=== PATIENT | male | born 1950 | race Caucasian/White ===

== ENCOUNTER 2021-03-22 16:35 | Emergency (ER) | payer OTHER ==
[~2021-03-22] VITALS: Ht 179.1 cm; Wt 89.8 kg
[2021-03-22 16:56] LABS: HEMOGLOBIN 13.3 gm/dl (14.0-17.5); RED BLOOD COUNT 4.9 M/UL (4.20-5.50); WHITE BLOOD COUNT 10.4 K/UL (4.5-11.0)
[2021-03-22 17:28] LABS: BUN/CREATININE RATIO 29 (0-10)
[2021-03-22] MEDS ORDERED: AMLODIPINE BESY10 MG PO (19:39)
[2021-03-22] MEDS ORDERED: FERROUS SULFAT325 MG PO (19:41)
[2021-03-22] MEDS ORDERED: ELIQUIS5 MG PO (19:41)
[2021-03-22] MEDS ORDERED: VITAMIN C500 M4 PO (19:42)
[2021-03-22] MEDS ORDERED: METHIMAZOLE5 MG PO (19:44)
[2021-03-22] MEDS ORDERED: NOVOLOG MI100 UNIT/1 INJ (19:44)
[2021-03-22] MEDS ORDERED: PROTONIX 40 MG40 M1 PO (19:45)
[2021-03-22] MEDS ORDERED: TRAZODONE HCL100 MG PO (19:46)
[2021-03-22] MEDS ORDERED: LYRICA50 MG PO (19:46)
[2021-03-22] MEDS ORDERED: CARVEDILOL25 MG PO (19:46)
[2021-03-22] MEDS ORDERED: MAGNESIUM OXID420 MG PO (19:47)
[2021-03-22] MEDS ORDERED: DULOXETINE HCL30 MG PO (19:47)
[2021-03-22] MEDS ORDERED: TRAMADOL HCL50 MG PO (19:49)
[2021-03-22] MEDS ORDERED: DOCUSATE SODIU1 EAC1 PO (19:49)
[2021-03-22] MEDS ORDERED: LOSARTAN POTASS25 MG PO (19:50)
== END 2021-03-22 22:45 | disposition home or self-care (01) ==
LOC: ER1 16:35
PROVIDERS: Student in an Organized Health Care Education/Training Program
DX: U07.1 COVID-19 (principal); J96.01 Acute respiratory failure with hypoxia; N17.9 Acute kidney failure, unspecified
CPT/HCPCS: 36600; 71045; 80053; 82550; 82553; 82803; 83874; 84484; 85025; 93005; 96374; 96375; 99285; J0696; J1100; U0002